=== PATIENT | female | born 1955 | race Caucasian/White ===

== ENCOUNTER → 2020-09-24 10:24 | Outpatient (CLI) | payer MEDICARE, OTHER, SELFPAY ==
[2020-09-24 12:27] LABS: Free T4, Direct Thyroxine 1.17 ng/dL (0.78-2.19)
[2020-09-24 12:41] LABS: Thyroid Stimulating Hormone 1.36 uIU/mL (0.47-4.68)
== END ==
PROVIDERS: PCP Family Medicine; Referring Provider Obstetrics & Gynecology; Visit Provider Obstetrics & Gynecology
DX: R68.82 Decreased libido (principal)
CPT/HCPCS: 36415; 84439; 84443

== ENCOUNTER → 2023-09-25 10:58 | Outpatient (CLI) | payer MEDICARE, OTHER, SELFPAY ==
[2023-09-26 14:34] LABS: Candida species Negative (Negative); Gardnerella vaginalis Positive (Negative); Trichomoas vaginalis Negative (Negative)
== END ==
PROVIDERS: PCP Family Medicine; Visit Provider Physician Assistant Medical
DX: N89.8 Other specified noninflammatory disorders of vagina (principal)
CPT/HCPCS: 87480; 87510; 87660